=== PATIENT | female | born 1975 | race African-American/Black ===

== ENCOUNTER 2022-07-22 18:47 | Emergency (ER) | payer SELFPAY ==
[~2022-07-22] VITALS: Ht 167.6 cm; Wt 56.0 kg
[2022-07-22 18:51] VITALS: BP 147/87
== END 2022-07-23 01:54 | disposition left against medical advice (07) ==
LOC: ER 18:58
DX: Z53.21 Procedure and treatment not carried out due to patient leaving prior to being seen by health care provider (principal)